=== PATIENT | male | born 1940 | race Caucasian/White ===

== ENCOUNTER → 2017-07-16 | Outpatient (CLI) | payer MEDICARE, OTHER ==
[~2017-07-16] MED LIST: ASPIRIN EC81 MG PO; CALCIUM PO; CELEBREX200 MG PO; D3 PO; EYLEA2 MG/0.05 IM; INHALERS PO; IRBESARTAN150 MG PO; LEVOTHYROXINE137 MCG PO; MULT VIT PO; NEXIUM40 MG PO; SAW PALMETTO160 MG PO; SKELAXIN800 MG PO; [UNRECOGNIZED DRUG - OTHER] PO; spiriva inhaler; symbicort inhaler
--- NOTE | 2017-07-16 11:16 | Diagnostic Imaging Report ---
Right knee MRI without contrast. History: Knee pain. Meniscus tear. Decreased range of motion. Pain not responding to conservative management Comparison: None. Technique: Multiplanar multi-sequence MRI of the knee without contrast. Findings: Medial compartment: There is a complex displaced tear involving the posterior horn and body segments of the medial meniscus. Meniscal tissue is displaced to the periphery. There is advanced full-thickness articular cartilage loss in the medial compartment with underlying bone marrow edema. The medial collateral ligament complex is intact. Lateral compartment: No meniscal tear or cartilage abnormality. The LCL complex is normal. Intercondylar notch: The ACL and PCL are intact. Patellofemoral compartment: There are regions of full-thickness articular cartilage loss in the patellofemoral compartment with underlying bone marrow edema. Extensor mechanism: The quadriceps and patellar tendons are normal. Other findings: There is a joint effusion and synovitis. There is no acute fracture, subluxation or avascular necrosis. 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 Regions of full-thickness articular cardia is loss in the patellofemoral compartment with underlying bone marrow edema. Joint effusion and synovitis. Signed by: Dr. Kobe Sauer M.D. on 07/16/2017 11:13 AM
== END ==
LOC: MRI 08:29
PROVIDERS: ATTEND Specialist
DX: S83.241A Other tear of medial meniscus, current injury, right knee, initial encounter (principal)

== ENCOUNTER → 2018-01-31 | Outpatient (CLI) | payer MEDICARE, OTHER ==
[~2018-01-31] MED LIST changes: +IOPAMIDOL 370 MG/ML 200 ML INFUS..BTL INJ ONE; +SODIUM CHLORIDE 0.9% 100 ML 100 ML ONE; +SODIUM CHLORIDE 0.9% 250ML 500 ML ONE
[2018-01-31 19:23] LABS: CREATININE, SERUM 1.43 mg/dL (0.72-1.25)
--- NOTE | 2018-01-31 19:53 | Diagnostic Imaging Report ---
EXAM: CT Chest WITH contrast 01/31/2018 5:30 PM INDICATION: \S\SOB; R/O PE COMPARISON: None TECHNIQUE: Chest was scanned utilizing a multidetector helical scanner from the lung apex through the level of the adrenal glands without administration of IV contrast. Coronal and sagittal reformations were obtained. PE protocol was performed. IV CONTRAST: 100 mL of Isovue-370 COMPLICATIONS: None RADIATION DOSE: Total DLP: 573.3 mGy*cm Estimated effective dose: (DLP x 0.014 x size factor) mSv CTDIvol has been reviewed. It is below the limits set by the Radiation Protocol Committee (RPC). FINDINGS: LINES/ TUBES: None. LUNGS AND AIRWAYS: No filling defect is identified within the pulmonary arteries to the segmental level. Left upper lobe resection. Diffuse centrilobular emphysematous changes, severe in the right upper lobe. Few scattered calcified granulomas. No masses or consolidations. Small amount of debris in the right mainstem bronchus. PLEURA: The pleural spaces are clear. HEART AND MEDIASTINUM: The thyroid gland is normal. No mediastinal, hilar or axillary lymphadenopathy. The heart is normal in size.. There is no pericardial effusion. There are mild atherosclerotic calcifications in the aorta. Coronary artery calcifications. 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 Main pulmonary artery measures 2.5 cm, within normal limits. UPPER ABDOMEN: Unremarkable. BONES: There are degenerative changes in the thoracic spine. Osseous demineralization. Right shoulder prosthesis. SOFT TISSUES: Unremarkable. IMPRESSION: No pulmonary emboli to the segmental level or acute abnormalities. Diffuse emphysema. Left upper lobe resection. Ascending aortic ectasia. Signed by: DR. Ac Lao MD on 01/31/2018 7:50 PM
== END ==
LOC: CT 17:08
PROVIDERS: ATTEND Family Medicine
DX: R07.9 Chest pain, unspecified (principal); R06.02 Shortness of breath; Z98.890 Other specified postprocedural states
CPT/HCPCS: 36415; 71260; 82565; 84520; J7050; Q9967

== ENCOUNTER → 2019-05-25 | Outpatient (CLI) | payer MEDICARE, OTHER ==
[~2019-05-25] MED LIST changes: -IOPAMIDOL 370 MG/ML 200 ML INFUS..BTL INJ ONE; -SODIUM CHLORIDE 0.9% 100 ML 100 ML ONE; -SODIUM CHLORIDE 0.9% 250ML 500 ML ONE
--- NOTE | 2019-05-25 17:16 | Diagnostic Imaging Report ---
CT of the chest, without contrast, 05/25/2019. History: Shortness of breath, history of lung cancer. Comparison: 01/31/2018. Technique: Multidetector CT scanning of the chest was performed from the level of the apices to the upper abdomen without contrast. Coronal and sagittal multiplanar reformations were obtained. RADIATION DOSE: Total DLP: 5:15 mGy*cm Dose modulation, iterative reconstruction, and/or weight based adjustment of the mA/kV was utilized to reduce the radiation dose to as low as reasonably achievable. Discussion: Evaluation is limited without IV contrast. Chest: The heart and pulmonary vessels are normal in size. Ascending aorta remains ectatic measuring 4.4 cm. There is calcification of the coronary arteries. Calcified left hilar node is present. There is no mediastinal adenopathy. Status post left upper lobectomy. There is severe right upper lobe emphysema. Diffuse bilateral peripheral scarring is present. A calcified granuloma is present in the left upper lobe. There is no evidence of consolidation or pleural effusion. Limited evaluation of the upper abdomen shows normal adrenal glands. Bones and soft tissues: No acute abnormality. Degenerative changes are present in the thoracic spine. 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 No acute or suspicious pulmonary findings. Signed by: Perez Archuleta on 05/25/2019 5:12 PM
== END ==
LOC: CT 13:06
PROVIDERS: ATTEND Internal Medicine Critical Care Medicine
DX: J98.4 Other disorders of lung (principal)
CPT/HCPCS: 71250

== ENCOUNTER → 2019-08-21 | Outpatient (CLI) | payer MEDICARE, OTHER ==
[~2019-08-21] MED LIST changes: +DIPHENHYDRAMINE HCL 25 MG CAP ONE; +IOPAMIDOL 370 MG/ML 200 ML INFUS..BTL INJ ONE; +SODIUM CHLORIDE 0.9% 100 ML ONE; +SODIUM CHLORIDE 0.9% 250ML 250 ML ONE; +SODIUM CHLORIDE 0.9% 500ML 500 ML ONE
[2019-08-21 12:32] LABS: BASOPHILS % 0.2 % (0.0-1.0); EOSINOPHILS # (AUTO) 0.1 (0.0-0.4); EOSINOPHILS % 1.1 % (0.0-6.0); HEMATOCRIT 39.3 % (38.2-49.6); HEMOGLOBIN 12.9 g/dL (14.0-18.0); LYMPHOCYTES # (AUTO) 0.9 (1.0-3.2); LYMPHOCYTES % 9.8 % (18.0-39.1); MEAN CORPUSCULAR HEMOGLOBIN 28.5 pg (28-32); MEAN CORPUSCULAR HGB CONC 32.8 g/dL (31-35); MEAN CORPUSCULAR VOLUME 86.9 fL (81-99); MONOCYTES # (AUTO) 0.4 (0.2-0.8); MONOCYTES % 4.7 % (4.4-11.3); NEUTROPHILS # (AUTO) 7.4 (2.1-6.9); NEUTROPHILS % 83.5 % (38.7-80.0); PLATELET COUNT 177 x10e3/uL (140-360); RED BLOOD COUNT 4.52 x10e6/uL (4.3-5.7); RED CELL DISTRIBUTION WIDTH 14.6 % (11.7-14.4)
[2019-08-21 12:51] LABS: ALBUMIN 3.4 g/dL (3.5-5.0); ALBUMIN/GLOBULIN RATIO 1.1 (0.8-2.0); ANION GAP 17.2 mmol/L (8-16); CALCIUM 8.7 mg/dL (8.4-10.2); CHOL/HDL RATIO 4.1 (3.9-4.7); CREATININE, SERUM 1.54 mg/dL (0.72-1.25); POTASSIUM 4.2 mmol/L (3.5-5.1)
[2019-08-21 13:13] LABS: THYROID STIMULATING HORMONE 1.182 uIU/mL (0.350-4.940)
--- NOTE | 2019-08-21 16:16 | Diagnostic Imaging Report ---
CT of the chest, abdomen, and pelvis, with contrast. History: Aortic ectasia. Comparison: CT chest 05/25/2019, 01/31/2018. Technique: Multidetector CT scanning of the abdomen and pelvis was performed from the level of the lung bases to the inferior pubic ramus, after intravenous administration of contrast. No oral contrast was given. Sagittal and coronal multiplanar as well as 3-D volume rendering reformations were obtained. Findings: Aorta and proximal branches: Stable 4.4 cm ectasia of the ascending thoracic aorta is present without evidence of dissection. There is no evidence of intramural or periaortic hematoma. There is preservation of the sinotubular junction. The innominate, proximal subclavian, and common carotid arteries are normal in branching order and size. The descending thoracic aorta is tortuous and ectatic but not aneurysmal. The abdominal aorta is calcified with an eccentric 3.7 cm aneurysm arising along the left aspect of the infrarenal abdominal aorta, beginning just below the left renal artery and extending only 4 cm in length. The celiac trunk, SMA, and KATHI are patent. Single renal arteries are present bilaterally both of which are patent. The iliac vessels and proximal femoral arteries are normal. Measurements of the aorta are as follows: 3 cm at the level of the aortic root, 4.4 cm in the mid ascending aorta, 4 cm in the distal ascending aorta, 3.2 cm in the mid aortic arch, 3.2 cm in the proximal descending aorta, 2.9 cm in the mid descending aorta, 2.7 cm at the level of the diaphragmatic hiatus, 2.6 cm at the level of the celiac trunk, 2.5 cm at the level of the SMA, 2.1 cm at level of the renal arteries, and 1.6 cm just above the level of the bifurcation. Chest: The atria, ventricles, and pulmonary vessels are normal in appearance. There is no evidence of axillary or mediastinal adenopathy. There is moderate bilateral predominantly upper lung zone emphysema. A calcified granuloma is noted in the left upper lobe lung. Post surgical changes of left upper lobectomy are noted. There is no evidence of consolidation, mass, or pleural effusion. Abdomen: Small stones are noted within the gallbladder. The liver, biliary tree, spleen, pancreas, adrenal glands, and kidneys are normal. Evaluation bowel is limited without oral contrast. There is no bowel dilatation. Scattered colonic diverticuli are present without evidence of adjacent inflammation. There is no evidence of adenopathy or free fluid. Pelvis: The bladder is unremarkable. The prostate is enlarged measuring 6.3 cm in transverse diameter. There is no evidence of free fluid or adenopathy. Small fat-containing left inguinal hernia is present. Bones: Degenerative changes are present throughout the thoracic and lumbar spine without evidence of lytic or sclerotic lesion. IMPRESSION: 1. Stable ectasia of the ascending thoracic aorta 2. 3.7 cm infrarenal abdominal aortic aneurysm. Recommend follow-up every 2 years. 3. Cholelithiasis. 4. Colonic diverticulosis without evidence of diverticulitis. 5. Prostatomegaly. Signed by: Perez Archuleta on 08/21/2019 4:14 PM
== END ==
LOC: CT 11:27
PROVIDERS: ATTEND Internal Medicine Cardiovascular Disease
DX: I71.2 Thoracic aortic aneurysm, without rupture (principal); I71.4 Abdominal aortic aneurysm, without rupture; I70.213 Atherosclerosis of native arteries of extremities with intermittent claudication, bilateral legs
CPT/HCPCS: 36415; 71275; 74174; 80053; 80061; 84443; 85025; J7040; J7050 ×2; Q9967

== ENCOUNTER → 2020-02-24 | Outpatient (CLI) | payer MEDICARE, OTHER ==
[~2020-02-24] MED LIST changes: -DIPHENHYDRAMINE HCL 25 MG CAP ONE; -IOPAMIDOL 370 MG/ML 200 ML INFUS..BTL INJ ONE; -SODIUM CHLORIDE 0.9% 100 ML ONE; -SODIUM CHLORIDE 0.9% 250ML 250 ML ONE; -SODIUM CHLORIDE 0.9% 500ML 500 ML ONE
--- NOTE | 2020-02-24 15:02 | Diagnostic Imaging Report ---
EXAM: CT Chest WITHOUT intravenous contrast 02/24/2020 2:30 PM INDICATION: Pulmonary nodules COMPARISON: Chest CTA of 08/21/2019, chest CT of 05/25/2019 and 01/31/2018 TECHNIQUE: Chest was scanned utilizing a multidetector helical scanner from the lung apex through the level of the adrenal glands without administration of IV contrast. Coronal and sagittal reformations were obtained. Routine protocol was performed. IV CONTRAST: None RADIATION DOSE: Total DLP: 568 mGy*cm. Dose modulation, iterative reconstruction, and/or weight based adjustment of the mA/kV was utilized to reduce the radiation dose to as low as reasonably achievable. COMPLICATIONS: None FINDINGS: LINES/ TUBES: None. LUNGS AND AIRWAYS: The central airways are patent. Status post left upper lobectomy. Severe upper lobe predominant centrilobular emphysema. Scattered small calcified and noncalcified pulmonary nodules appear unchanged. Medial right upper lobe 5 mm pulmonary nodule appears unchanged. No new suspicious pulmonary nodules. PLEURA: The pleural spaces are clear. HEART AND MEDIASTINUM: Thyroid gland not well visualized, likely atrophic. No supraclavicular, axillary, mediastinal, or hilar lymphadenopathy. The heart is not enlarged. No pericardial effusion. Atherosclerotic calcifications involve the aorta, coronary arteries, and proximal great vessels. Ectatic ascending aorta measures up to 4.2 cm. UPPER ABDOMEN: No acute findings in the upper abdomen. BONES: No acute osseous injury. No suspicious lytic or blastic lesions. Right shoulder arthroplasty. SOFT TISSUES: Unremarkable. IMPRESSION: Unchanged pulmonary nodules. No new suspicious pulmonary nodules. Unchanged background of severe upper lobe predominant centrilobular emphysema. Signed by: Mac Eddy MD on 02/24/2020 2:59 PM
== END ==
LOC: CT 14:08
PROVIDERS: ATTEND Internal Medicine Critical Care Medicine
DX: J98.4 Other disorders of lung (principal); R60.9 Edema, unspecified
CPT/HCPCS: 71250

== ENCOUNTER → 2020-02-29 | Outpatient (CLI) | payer MEDICARE, OTHER ==
--- NOTE | 2020-02-29 16:51 | Diagnostic Imaging Report ---
Ultrasound right axilla History: Pain, soft tissue mass Comparison: None Technique: Multiple grayscale and color flow images of the right axillary line the region of interest were performed using a linear high-resolution transducer. Findings: There is no abnormal mass or cyst. Impression: No abnormal mass or cyst seen. Signed by: Chaka Wilhelm MD on 02/29/2020 4:48 PM
== END ==
LOC: US 15:20
PROVIDERS: ATTEND Family Medicine
DX: R22.31 Localized swelling, mass and lump, right upper limb (principal)
CPT/HCPCS: 76882

== ENCOUNTER → 2020-06-24 | Outpatient (CLI) | payer MEDICARE, OTHER ==
[2020-06-24 08:45] LABS: BASOPHILS % 0.6 % (0.0-1.0); EOSINOPHILS # (AUTO) 0.3 (0.0-0.4); EOSINOPHILS % 5.1 % (0.0-6.0); HEMATOCRIT 39.5 % (38.2-49.6); HEMOGLOBIN 13.2 g/dL (14.0-18.0); LYMPHOCYTES # (AUTO) 1.2 (1.0-3.2); LYMPHOCYTES % 22.9 % (18.0-39.1); MEAN CORPUSCULAR HEMOGLOBIN 28.3 pg (28-32); MEAN CORPUSCULAR HGB CONC 33.4 g/dL (31-35); MEAN CORPUSCULAR VOLUME 84.6 fL (81-99); MONOCYTES # (AUTO) 0.4 (0.2-0.8); MONOCYTES % 8.4 % (4.4-11.3); NEUTROPHILS # (AUTO) 3.2 (2.1-6.9); NEUTROPHILS % 62.6 % (38.7-80.0); PLATELET COUNT 197 x10e3/uL (140-360); RED BLOOD COUNT 4.67 x10e6/uL (4.3-5.7); RED CELL DISTRIBUTION WIDTH 14.5 % (11.7-14.4)
[2020-06-24 09:01] LABS: ALBUMIN 3.6 g/dL (3.5-5.0); ALBUMIN/GLOBULIN RATIO 1.1 (0.8-2.0); ANION GAP 10.5 mmol/L (8-16); CALCIUM 8.7 mg/dL (8.4-10.2); CREATININE, SERUM 1.45 mg/dL (0.72-1.25); POTASSIUM 4.5 mmol/L (3.5-5.1)
== END ==
LOC: RAD 08:02
PROVIDERS: ATTEND Internal Medicine Critical Care Medicine
DX: J44.1 Chronic obstructive pulmonary disease with (acute) exacerbation (principal); N18.30 Chronic kidney disease, stage 3 unspecified
CPT/HCPCS: 36415; 71046; 80053; 85025

== ENCOUNTER → 2020-09-07 | Outpatient (CLI) | payer MEDICARE ==
[~2020-09-07] MED LIST changes: +ASPIR 8181 MG PO; +CELEBREX100 MG PO; +DULCOLAX5 MG PO; +FAMOTIDINE20 MG PO; +GABAPENTIN100 MG PO; +IOPAMIDOL 370 MG/ML 200 ML INFUS..BTL INJ ONE; +LEVOTHYROXINE112 MCG PO; +LOSARTAN POTASS25 MG PO; +MULTIVITAMINS1 EAC7 PO; +NAPROXEN250 MG PO; +NORCO 7.5-3251 EACH PO; +OMEPRAZOLE40 MG PO; +PEPCID20 MG PO; +PRESERVISION T1 EACH PO; +PROAIR HFA INH8.5 GM PO; +SODIUM CHLORIDE 0.9% 500ML 500 ML ONE; +SODIUM CHLORIDE 0.9% 50ML 50 ML ONE; +SPIRIVA18 MCG INH; +SYMBICORT 80-10.2 GM INH; +TYLENOL # 31 EA PO; +ULTRAM 50MG50 MG PO; +XARELTO10 MG PO
[2020-09-07 13:12] LABS: CREATININE, SERUM 1.43 mg/dL (0.72-1.25)
== END ==
LOC: CT 11:59
PROVIDERS: ATTEND Internal Medicine Cardiovascular Disease
DX: I71.2 Thoracic aortic aneurysm, without rupture (principal); I71.4 Abdominal aortic aneurysm, without rupture
CPT/HCPCS: 36415; 71275; 74174; 82565; 84520; 96360; J7040; Q9967

== ENCOUNTER → 2021-01-05 | Outpatient (CLI) | payer MEDICARE ==
[~2021-01-05] MED LIST changes: -IOPAMIDOL 370 MG/ML 200 ML INFUS..BTL INJ ONE; -SODIUM CHLORIDE 0.9% 500ML 500 ML ONE; -SODIUM CHLORIDE 0.9% 50ML 50 ML ONE
== END ==
LOC: CT 16:35
PROVIDERS: ATTEND Internal Medicine Critical Care Medicine
DX: R91.1 Solitary pulmonary nodule (principal)
CPT/HCPCS: 71250

== ENCOUNTER 2021-02-21 18:31 | Emergency (ER) | payer MEDICARE ==
[~2021-02-21] VITALS: Ht 177.8 cm; Wt 99.8 kg
[2021-02-21 19:12] LABS: BASOPHILS % 0.6 % (0.0-1.0); EOSINOPHILS # (AUTO) 0.2 (0.0-0.4); EOSINOPHILS % 4.3 % (0.0-6.0); HEMATOCRIT 40.5 % (38.2-49.6); HEMOGLOBIN 13.5 g/dL (14.0-18.0); LYMPHOCYTES # (AUTO) 1.2 (1.0-3.2); LYMPHOCYTES % 22.7 % (18.0-39.1); MEAN CORPUSCULAR HEMOGLOBIN 28.2 pg (28-32); MEAN CORPUSCULAR HGB CONC 33.3 g/dL (31-35); MEAN CORPUSCULAR VOLUME 84.6 fL (81-99); MONOCYTES # (AUTO) 0.5 (0.2-0.8); MONOCYTES % 10.3 % (4.4-11.3); NEUTROPHILS # (AUTO) 3.1 (2.1-6.9); NEUTROPHILS % 61.7 % (38.7-80.0); PLATELET COUNT 221 x10e3/uL (140-360); RED BLOOD COUNT 4.79 x10e6/uL (4.3-5.7); RED CELL DISTRIBUTION WIDTH 14.6 % (11.7-14.4)
[2021-02-21 19:28] LABS: ALBUMIN 3.9 g/dL (3.5-5.0); ALBUMIN/GLOBULIN RATIO 1.1 (0.8-2.0); ANION GAP 17.9 mmol/L (8-16); CALCIUM 8.8 mg/dL (8.4-10.2); CREATININE, SERUM 1.34 mg/dL (0.72-1.25); POTASSIUM 3.9 mmol/L (3.5-5.1)
== END 2021-02-22 00:15 | disposition home or self-care (01) ==
LOC: ER 18:50
DX: R50.9 Fever, unspecified (principal); R05 Cough; R07.89 Other chest pain; I10 Essential (primary) hypertension; E03.9 Hypothyroidism, unspecified; Z20.822 Contact with and (suspected) exposure to COVID-19
CPT/HCPCS: 36415; 71045; 80053; 83880; 84484; 85025; 93005; 99284; U0002

== ENCOUNTER 2021-05-30 14:05 | Inpatient (IN) | payer MEDICARE ==
[~2021-05-30] VITALS: Ht 177.8 cm; Wt 99.8 kg
[2021-05-30] MEDS ORDERED: ASPIRIN 81 MG CHEW TAB PO ONE (14:45)
[2021-05-30 15:00] LABS: BASOPHILS % 0.5 % (0.0-1.0); EOSINOPHILS # (AUTO) 0.2 (0.0-0.4); EOSINOPHILS % 4.4 % (0.0-6.0); HEMATOCRIT 35.4 % (38.2-49.6); HEMOGLOBIN 11.7 g/dL (14.0-18.0); LYMPHOCYTES # (AUTO) 0.9 (1.0-3.2); LYMPHOCYTES % 17.1 % (18.0-39.1); MEAN CORPUSCULAR HEMOGLOBIN 28.5 pg (28-32); MEAN CORPUSCULAR HGB CONC 33.1 g/dL (31-35); MEAN CORPUSCULAR VOLUME 86.3 fL (81-99); MONOCYTES # (AUTO) 0.7 (0.2-0.8); MONOCYTES % 13.5 % (4.4-11.3); NEUTROPHILS # (AUTO) 3.5 (2.1-6.9); NEUTROPHILS % 64.3 % (38.7-80.0); PLATELET COUNT 204 x10e3/uL (140-360); RED CELL DISTRIBUTION WIDTH 14.5 % (11.7-14.4)
[2021-05-30 15:13] LABS: INR 0.89; PROTHROMBIN TIME 12.8 seconds (11.9-14.5)
[2021-05-30 15:14] LABS: PARTIAL THROMBOPLASTIN TIME 27.1 seconds (23.8-35.5)
[2021-05-30 15:24] LABS: ALBUMIN 3.4 g/dL (3.5-5.0); ALBUMIN/GLOBULIN RATIO 1.2 (0.8-2.0); ANION GAP 12.3 mmol/L (8-16); CALCIUM 8.6 mg/dL (8.4-10.2); CREATININE, SERUM 1.55 mg/dL (0.72-1.25); POTASSIUM 4.3 mmol/L (3.5-5.1)
[2021-05-30 15:30] LABS: CREATINE KINASE MB 4.1 ng/mL (0-5.0)
[2021-05-30] MEDS ORDERED: SODIUM CHLORIDE 0.9% 500ML 500 ML IV ONE (16:00)
[2021-05-30] MEDS ORDERED: DEXAMETHASONE SOD PHOS 10 MG/1 ML VIAL IV ONE (16:00)
[2021-05-30 16:02] LABS: CLARITY,URINE CLEAR (CLEAR); COLOR,URINE YELLOW (YELLOW)
[2021-05-30 16:03] LABS: KETONES,URINE NEGATIVE (NEGATIVE); LEUKOCYTE ESTERASE ,URINE NEGATIVE (NEGATIVE); NITRITE,URINE NEGATIVE (NEGATIVE); PROTEIN,URINE DIPSTICK >=300 (NEGATIVE); URINE UROBILINOGEN 0.2 mg/dL (0.2 - 1)
[2021-05-30 16:06] LABS: BACTERIA,URINE RARE /HPF; EPITHELIAL CELLS,URINE FEW /LPF; RBC,URINE 0-5 /HPF (0-5); WBC,URINE (MAN) 0-5 /HPF (0-5)
[2021-05-30] MEDS ORDERED: ALBUTEROL/IPRATROPIUM 3 ML NEB NEB PRN (16:30)
[2021-05-30] MEDS ORDERED: NITROGLYCERIN 0.4 MG SUBL SL PRN (16:30)
[2021-05-30] MEDS ORDERED: ONDANSETRON HCL INJ 2MG/ML 2ML 2 MG/ML VIAL IV PRN ×2 (16:30→18:15)
[2021-05-30] MEDS ORDERED: PREDNISONE 20 MG TAB PO ONE ×2 (18:15→19:15)
[2021-05-30] MEDS ORDERED: PROAIR HFA INH8.5 GM INH (18:32)
[2021-05-30] MEDS ORDERED: VITAMIN B-121000 MCG PO (18:32)
[2021-05-30] MEDS ORDERED: SYMBICORT 80-10.2 GM INH (18:32)
[2021-05-30] MEDS ORDERED: AMLODIPINE BESYL5 MG PO (18:32)
[2021-05-30] MEDS ORDERED: SKELAXIN800 MG PO (18:32)
[2021-05-30] MEDS ORDERED: MULTI-VITAMIN1 EACH PO (18:32)
[2021-05-30] MEDS ORDERED: SPIRIVA18 MCG INH (18:32)
[2021-05-30] MEDS ORDERED: VITAMIN E400 UNI1 PO (18:32)
[2021-05-30] MEDS ORDERED: ACETAMINOP325 MG/10 PO (18:33)
[2021-05-30 18:38] VITALS: BP 194/94
[2021-05-30] MEDS ORDERED: CLOPIDOGREL BISULFATE 75 MG TAB PO ONE (18:40)
[2021-05-30] MEDS: SODIUM CHLORIDE 0.9% 1000ML 1,000 ML IV SCH (18:50)
[2021-05-30] MEDS: CLONIDINE HCL 0.1 MG TAB PO PRN (18:50)
[2021-05-30 20:00] VITALS: BP 174/84
[2021-05-30 20:42] VITALS: BP 174/84
[2021-05-31] VITALS (18 sets, daily range): BP systolic 141–175; BP diastolic 69–92
[2021-05-31] MEDS ORDERED: PREDNISONE 20 MG TAB PO ONE ×2 (00:45→06:45)
[2021-05-31] MEDS: SODIUM CHLORIDE 0.9% 1000ML 1,000 ML IV SCH ×3 (03:03→22:00)
[2021-05-31 05:29] LABS: HEMATOCRIT 38.2 % (38.2-49.6); HEMOGLOBIN 12.9 g/dL (14.0-18.0); LYMPHOCYTES # (AUTO) 0.5 (1.0-3.2); MEAN CORPUSCULAR HEMOGLOBIN 28.3 pg (28-32); MEAN CORPUSCULAR HGB CONC 33.8 g/dL (31-35); MEAN CORPUSCULAR VOLUME 83.8 fL (81-99); MONOCYTES # (AUTO) 0.1 (0.2-0.8); MONOCYTES % 1.5 % (4.4-11.3); NEUTROPHILS # (AUTO) 2.7 (2.1-6.9); NEUTROPHILS % 82.2 % (38.7-80.0); PLATELET COUNT 206 x10e3/uL (140-360); RED BLOOD COUNT 4.56 x10e6/uL (4.3-5.7)
[2021-05-31] MEDS: LEVOTHYROXINE SODIUM 125 MCG TAB PO SCH (05:37)
[2021-05-31] MEDS: CLONIDINE HCL 0.1 MG TAB PO PRN (05:41)
[2021-05-31 06:06] LABS: ALBUMIN 3.4 g/dL (3.5-5.0); ANION GAP 15.7 mmol/L (8-16); CALCIUM 9.2 mg/dL (8.4-10.2); CREATININE, SERUM 1.27 mg/dL (0.72-1.25); POTASSIUM 4.7 mmol/L (3.5-5.1)
[2021-05-31 06:29] LABS: CREATINE KINASE MB 2.6 ng/mL (0-5.0)
[2021-05-31 06:36] LABS: CHOL/HDL RATIO 4.1 (3.9-4.7)
[2021-05-31] MEDS ORDERED: DIPHENHYDRAMINE HCL 25 MG CAP PO ONE (06:45)
[2021-05-31] MEDS ORDERED: SODIUM CHLORIDE 0.9% 100 ML ONE (07:35)
[2021-05-31] MEDS ORDERED: IOPAMIDOL 370 MG/ML 200 ML INFUS..BTL INJ ONE ×2 (07:35→10:25)
[2021-05-31 07:41] LABS: LYMPHOCYTES % (MANUAL) 14 % (19-48); MONOCYTES % (MANUAL) 6 % (3.4-9.0); NEUTROPHILS % (MANUAL) 79 % (40-74); PLATELET ESTIMATE ADEQUATE; PLATELET MORPHOLOGY COMMENT NORMAL; RBC MORPHOLOGY COMMENT NORMAL
[2021-05-31] MEDS: ASPIRIN 81 MG ENTERIC COATED PO SCH ×2 (08:57→16:44)
[2021-05-31] MEDS ORDERED: LIDOCAINE HCL 2% LOCAL 20 ML VIAL ONE (10:24)
[2021-05-31] MEDS ORDERED: MIDAZOLAM HCL 2 MG/2 ML VIAL ONE (10:24)
[2021-05-31] MEDS ORDERED: FENTANYL CITRATE/PF 100MCG/2 ML INJ ONE (10:24)
[2021-05-31] MEDS ORDERED: HEPARIN SOD/SOD CHLORIDE 2,000 ML ONE (10:25)
[2021-05-31] MEDS ORDERED: SODIUM CHLORIDE 0.9% 1000ML 1,000 ML ONE (10:25)
[2021-05-31] MEDS ORDERED: HYDRALAZINE HCL 20 MG/ML VIAL ONE (11:13)
[2021-05-31 13:55] LABS: CREATINE KINASE MB 3.3 ng/mL (0-5.0)
[2021-05-31] MEDS: Morphine 2mg Syringe 2 MG/ML SYR IV PRN ×2 (15:40→19:49)
[2021-06-01] VITALS: BP 155/77
[2021-06-01 04:00] VITALS: BP 152/68
[2021-06-01 05:47] LABS: EOSINOPHILS % 0.2 % (0.0-6.0); HEMATOCRIT 34.5 % (38.2-49.6); HEMOGLOBIN 11.2 g/dL (14.0-18.0); LYMPHOCYTES # (AUTO) 0.8 (1.0-3.2); LYMPHOCYTES % 13.2 % (18.0-39.1); MEAN CORPUSCULAR HEMOGLOBIN 28.1 pg (28-32); MEAN CORPUSCULAR HGB CONC 32.5 g/dL (31-35); MEAN CORPUSCULAR VOLUME 86.7 fL (81-99); MONOCYTES # (AUTO) 0.5 (0.2-0.8); MONOCYTES % 8.6 % (4.4-11.3); NEUTROPHILS # (AUTO) 4.7 (2.1-6.9); NEUTROPHILS % 77.7 % (38.7-80.0); PLATELET COUNT 170 x10e3/uL (140-360); RED BLOOD COUNT 3.98 x10e6/uL (4.3-5.7); RED CELL DISTRIBUTION WIDTH 14.6 % (11.7-14.4)
[2021-06-01] MEDS: LEVOTHYROXINE SODIUM 125 MCG TAB PO SCH (05:56)
[2021-06-01 06:12] LABS: ALBUMIN 3.1 g/dL (3.5-5.0); ALBUMIN/GLOBULIN RATIO 1.2 (0.8-2.0); ANION GAP 11.1 mmol/L (8-16); CALCIUM 8.1 mg/dL (8.4-10.2); CREATININE, SERUM 1.21 mg/dL (0.72-1.25); POTASSIUM 4.1 mmol/L (3.5-5.1)
[2021-06-01 08:08] VITALS: BP 177/83
[2021-06-01] MEDS: ASPIRIN 81 MG ENTERIC COATED PO SCH (08:20)
[2021-06-01] MEDS: CLONIDINE HCL 0.1 MG TAB PO PRN (08:22)
[2021-06-01 08:28] VITALS: BP 177/83
[2021-06-01 09:00] VITALS: BP 177/83
[2021-06-01] MEDS ORDERED: DIGOXIN 0.125 MG TAB PO SCH (09:00)
[2021-06-01] MEDS ORDERED: ONDANSETRON HCL 4 MG ORAL DISINTEGRATING TAB PO PRN (11:00)
== END 2021-06-01 11:25 | disposition home or self-care (01) | DRG 287 ==
LOC: ER 14:39 → ERHOLD 16:28 → MED/SURG 18:13
PROC: 4A023N7 Measurement of Cardiac Sampling and Pressure, Left Heart, Percutaneous Approach (ICD-10-PCS; principal; 2021-05-31)
PROC: B2111ZZ Fluoroscopy of Multiple Coronary Arteries using Low Osmolar Contrast (ICD-10-PCS; 2021-05-31)
DX: I24.9 Acute ischemic heart disease, unspecified (principal); J44.1 Chronic obstructive pulmonary disease with (acute) exacerbation; I25.119 Atherosclerotic heart disease of native coronary artery with unspecified angina pectoris; I25.84 Coronary atherosclerosis due to calcified coronary lesion; I71.4 Abdominal aortic aneurysm, without rupture; I73.9 Peripheral vascular disease, unspecified; M19.90 Unspecified osteoarthritis, unspecified site; J44.9 Chronic obstructive pulmonary disease, unspecified; Z95.1 Presence of aortocoronary bypass graft; E03.9 Hypothyroidism, unspecified; Z86.711 Personal history of pulmonary embolism; Z88.0 Allergy status to penicillin; F17.220 Nicotine dependence, chewing tobacco, uncomplicated; I83.12 Varicose veins of left lower extremity with inflammation; I83.11 Varicose veins of right lower extremity with inflammation; Z90.49 Acquired absence of other specified parts of digestive tract; M47.9 Spondylosis, unspecified; M17.0 Bilateral primary osteoarthritis of knee; Z20.822 Contact with and (suspected) exposure to COVID-19
CPT/HCPCS: 36415; 71045; 71250; 71260; 74174; 80053; 80061; 81001; 82550; 82553; 83880; 84443; 84484; 85025; 85610; 85730; 93005; 93306; 93454; 94799; 96361; 99152; 99153; 99284; C1769; C1887; J0360; J1100; J2001; J2250; J2270; J3010; J7030; J7040; J7050; J7512; Q9967; U0002

== ENCOUNTER 2021-06-11 22:32 | Emergency (ER) | payer MEDICARE ==
[~2021-06-11] VITALS: Ht 330.2 cm; Wt 99.8 kg
[~2021-06-11 22:32] MED LIST changes: +ACETAMINOP325 MG/10 PO; +AMLODIPINE BESYL5 MG PO; +MULTI-VITAMIN1 EACH PO; +PROAIR HFA INH8.5 GM INH; +VITAMIN B-121000 MCG PO; +VITAMIN E400 UNI1 PO
[2021-06-11] MEDS ORDERED: ACETAMINOPHEN 325 MG TAB PO ONE (23:15)
[2021-06-11 23:16] LABS: BASOPHILS % 0.3 % (0.0-1.0); EOSINOPHILS # (AUTO) 0.1 (0.0-0.4); EOSINOPHILS % 1.2 % (0.0-6.0); HEMATOCRIT 37.2 % (38.2-49.6); HEMOGLOBIN 12.3 g/dL (14.0-18.0); LYMPHOCYTES # (AUTO) 0.5 (1.0-3.2); LYMPHOCYTES % 6.3 % (18.0-39.1); MEAN CORPUSCULAR HEMOGLOBIN 28.3 pg (28-32); MEAN CORPUSCULAR HGB CONC 33.1 g/dL (31-35); MEAN CORPUSCULAR VOLUME 85.7 fL (81-99); MONOCYTES # (AUTO) 0.6 (0.2-0.8); MONOCYTES % 7.3 % (4.4-11.3); NEUTROPHILS # (AUTO) 6.4 (2.1-6.9); NEUTROPHILS % 84.5 % (38.7-80.0); PLATELET COUNT 173 x10e3/uL (140-360); RED BLOOD COUNT 4.34 x10e6/uL (4.3-5.7); RED CELL DISTRIBUTION WIDTH 14.5 % (11.7-14.4)
[2021-06-11 23:19] LABS: INR 0.96; PROTHROMBIN TIME 13.6 seconds (11.9-14.5)
[2021-06-11 23:20] LABS: PARTIAL THROMBOPLASTIN TIME 32.6 seconds (23.8-35.5)
[2021-06-11 23:29] LABS: ALBUMIN 3.5 g/dL (3.5-5.0); ALBUMIN/GLOBULIN RATIO 1.1 (0.8-2.0); ANION GAP 15.6 mmol/L (8-16); CALCIUM 8.7 mg/dL (8.4-10.2); CREATININE, SERUM 1.68 mg/dL (0.72-1.25); POTASSIUM 4.6 mmol/L (3.5-5.1)
[2021-06-11] MEDS ORDERED: SODIUM CHLORIDE 0.9% 500ML 500 ML IV STA (23:32)
[2021-06-11 23:35] LABS: CREATINE KINASE MB 1.5 ng/mL (0-5.0)
[2021-06-11] MEDS ORDERED: SODIUM CHLORIDE 0.9% 1000ML 1,000 ML ONE (23:46)
[2021-06-12] MEDS ORDERED: LEVALBUTEROL HCL SOLN NEBU 0.63 MG/3 ML NEB INH ONE (01:30)
[2021-06-12 02:21] LABS: CLARITY,URINE SL CLOUDY (CLEAR); COLOR,URINE YELLOW (YELLOW); LEUKOCYTE ESTERASE ,URINE NEGATIVE (NEGATIVE); NITRITE,URINE NEGATIVE (NEGATIVE)
[2021-06-12 02:22] LABS: KETONES,URINE NEGATIVE (NEGATIVE); PROTEIN,URINE DIPSTICK >=300 (NEGATIVE); URINE UROBILINOGEN 0.2 mg/dL (0.2 - 1)
[2021-06-12 02:27] LABS: BACTERIA,URINE FEW /HPF; EPITHELIAL CELLS,URINE FEW /LPF
== END 2021-06-12 02:57 | disposition home or self-care (01) ==
LOC: ER 22:36
DX: R06.02 Shortness of breath (principal); J44.9 Chronic obstructive pulmonary disease, unspecified; I10 Essential (primary) hypertension; E03.9 Hypothyroidism, unspecified; Z95.1 Presence of aortocoronary bypass graft
CPT/HCPCS: 36415; 71045; 80053; 81001; 82550; 82553; 83880; 84484; 85025; 85610; 85730; 93005; 94640; 94799; 99284; J7030; U0002

== ENCOUNTER → 2021-10-17 | Outpatient (CLI) | payer MEDICARE | LOC: RAD 12:10 | PROVIDERS: ATTEND Internal Medicine Pulmonary Disease | DX: J44.9 Chronic obstructive pulmonary disease, unspecified (principal) | CPT/HCPCS: 71046 ==

== ENCOUNTER → 2022-05-09 | Outpatient (CLI) | payer MEDICARE | LOC: RAD 11:41 | PROVIDERS: ATTEND Internal Medicine Pulmonary Disease | DX: R06.02 Shortness of breath (principal) | CPT/HCPCS: 71046 ==

== ENCOUNTER → 2023-04-30 | Outpatient (REF) | payer MEDICARE | LOC: RAD 12:27 | PROVIDERS: ATTEND Internal Medicine Pulmonary Disease | DX: J44.9 Chronic obstructive pulmonary disease, unspecified (principal) | CPT/HCPCS: 71046 ==

== ENCOUNTER → 2023-11-12 | Outpatient (REF) | payer MEDICARE | LOC: RAD 10:25 | PROVIDERS: ATTEND Internal Medicine Pulmonary Disease | DX: J44.9 Chronic obstructive pulmonary disease, unspecified (principal) | CPT/HCPCS: 71046 ==

== ENCOUNTER 2024-05-29 09:30 | Inpatient (IN) | payer MEDICARE ==
[2024-05-29] VITALS (12 sets, daily range): BP systolic 160–168; BP diastolic 80–100; PULSE 88–110; RESP 18–20; TEMP 97.9–99.3; O2SAT 95–100
[~2024-05-29] VITALS: Ht 162.6 cm; Wt 99.8 kg
[2024-05-29 10:23] LABS: BASOPHILS % 0.6 % (0.0-1.0); EOSINOPHILS # (AUTO) 0.1 (0.0-0.4); EOSINOPHILS % 1.9 % (0.0-6.0); HEMATOCRIT 36.6 % (38.2-49.6); HEMOGLOBIN 11.8 g/dL (14.0-18.0); LYMPHOCYTES # (AUTO) 0.6 (1.0-3.2); LYMPHOCYTES % 11.4 % (18.0-39.1); MEAN CORPUSCULAR HEMOGLOBIN 28.5 pg (28-32); MEAN CORPUSCULAR HGB CONC 32.2 g/dL (31-35); MEAN CORPUSCULAR VOLUME 88.4 fL (81-99); MONOCYTES # (AUTO) 0.6 (0.2-0.8); MONOCYTES % 10.7 % (4.4-11.3); NEUTROPHILS # (AUTO) 3.9 (2.1-6.9); NEUTROPHILS % 75.2 % (38.7-80.0); PLATELET COUNT 198 x10e3/uL (140-360); RED BLOOD COUNT 4.14 x10e6/uL (4.3-5.7); RED CELL DISTRIBUTION WIDTH 14.3 % (11.7-14.4); WHITE BLOOD COUNT 5.16 x10e3/uL (4.8-10.8)
[2024-05-29 10:30] LABS: INR 1.05; PROTHROMBIN TIME 14.3 seconds (11.9-14.5)
[2024-05-29 10:31] LABS: PARTIAL THROMBOPLASTIN TIME 32.1 seconds (23.8-35.5)
[2024-05-29] MEDS: METHYLPREDNISOLONE SOD SUCC 125 MG/2ML VIAL IV STA (10:36)
[2024-05-29 10:37] LABS: ALBUMIN 3.5 g/dL (3.5-5.0); ANION GAP 17.2 mmol/L (8-16); BILIRUBIN,TOTAL 0.6 mg/dL (0.2-1.2); CALCIUM 8.9 mg/dL (8.4-10.2); CREATININE, SERUM 2.08 mg/dL (0.72-1.25); POTASSIUM 4.2 mmol/L (3.5-5.1); TOTAL PROTEIN 6.9 g/dL (6.5-8.1)
[2024-05-29] MEDS: SODIUM CHLORIDE 0.9% 500ML 500 ML IV ONE (10:37)
[2024-05-29] MEDS: ALBUTEROL/IPRATROPIUM 3 ML NEB NEB ONE (11:00)
[2024-05-29 11:44] LABS: CLARITY,URINE CLEAR (CLEAR); COLOR,URINE YELLOW (YELLOW); LEUKOCYTE ESTERASE ,URINE NEGATIVE (NEGATIVE); NITRITE,URINE NEGATIVE (NEGATIVE); PH,URINE 5.5 (5 - 7)
[2024-05-29 11:45] LABS: BILIRUBIN,URINE NEGATIVE (NEGATIVE); GLUCOSE, URINE NEGATIVE (NEGATIVE); KETONES,URINE 1+ (NEGATIVE); PROTEIN,URINE DIPSTICK >=300 (NEGATIVE); URINE UROBILINOGEN 0.2 mg/dL (0.2 - 1)
[2024-05-29 11:55] LABS: BACTERIA,URINE MODERATE /HPF; EPITHELIAL CELLS,URINE FEW /LPF; RBC,URINE 0-5 /HPF (0-5); WBC,URINE (MAN) 0-5 /HPF (0-5)
[2024-05-29 11:56] LABS: URIC ACID CRYSTALS,URINE FEW (FEW)
[2024-05-29 12:01] LABS: OTHER CRYSTALS,URINE PRESENT
[2024-05-29] MEDS ORDERED: ONDANSETRON HCL INJ 2MG/ML 2ML 2 MG/ML VIAL IV PRN (12:45)
[2024-05-29] MEDS: SODIUM CHLORIDE 0.9% 1000ML 1,000 ML IV SCH (13:09)
[2024-05-29] MEDS: ALBUTEROL/IPRATROPIUM 3 ML NEB NEB SCH (13:19)
[2024-05-29] MEDS ORDERED: CLOPIDOGREL75 MG PO (15:05)
[2024-05-29] MEDS ORDERED: ALLOPURINOL100 MG PO (15:05)
[2024-05-29] MEDS ORDERED: Morphine 2mg Syringe 2 MG/ML SYR IV PRN (16:00)
[2024-05-29] MEDS ORDERED: ACETAMINOPHEN 325 MG TAB PO PRN (16:00)
[2024-05-29] MEDS ORDERED: ALBUTEROL/IPRATROPIUM 3 ML NEB NEB PRN (16:15)
[2024-05-29] MEDS: LOSARTAN POTASSIUM 100 MG TAB PO SCH (16:15)
[2024-05-29] MEDS: CELECOXIB 100 MG CAP PO SCH (16:15)
[2024-05-29 16:18] LABS: TROPONIN I 0.028 ng/mL (0-0.300)
[2024-05-29] MEDS: HYDRALAZINE HCL 20 MG/ML VIAL IV PRN (16:20)
[2024-05-29] MEDS: HYDROCODONE/APAP 5MG-325MG TAB PO PRN (16:20)
[2024-05-29] MEDS: METHYLPREDNISOLONE SOD SUCC 125 MG/2ML VIAL IV SCH (17:30)
[2024-05-29] MEDS: GABAPENTIN 400 MG CAP PO SCH (21:46)
[2024-05-30] VITALS (9 sets, daily range): BP systolic 145–160; BP diastolic 79–93; PULSE 95–103; RESP 18–23; TEMP 97.7–98.1; O2SAT 95–100
[2024-05-30 06:48] LABS: BASOPHILS % 0.2 % (0.0-1.0); HEMATOCRIT 34.1 % (38.2-49.6); LYMPHOCYTES # (AUTO) 0.3 (1.0-3.2); LYMPHOCYTES % 6.7 % (18.0-39.1); MEAN CORPUSCULAR HEMOGLOBIN 28.6 pg (28-32); MEAN CORPUSCULAR HGB CONC 32.3 g/dL (31-35); MEAN CORPUSCULAR VOLUME 88.6 fL (81-99); MONOCYTES # (AUTO) 0.1 (0.2-0.8); NEUTROPHILS # (AUTO) 3.7 (2.1-6.9); NEUTROPHILS % 90.6 % (38.7-80.0); PLATELET COUNT 177 x10e3/uL (140-360); RED BLOOD COUNT 3.85 x10e6/uL (4.3-5.7); RED CELL DISTRIBUTION WIDTH 14.6 % (11.7-14.4); WHITE BLOOD COUNT 4.06 x10e3/uL (4.8-10.8)
[2024-05-30 07:13] LABS: ALBUMIN 3.1 g/dL (3.5-5.0); ALBUMIN/GLOBULIN RATIO 1.1 (0.8-2.0); BILIRUBIN,TOTAL 0.3 mg/dL (0.2-1.2); CALCIUM 8.5 mg/dL (8.4-10.2); CHOL/HDL RATIO 3.7 (3.9-4.7); CREATININE, SERUM 2.03 mg/dL (0.72-1.25)
[2024-05-30 07:52] LABS: TROPONIN I 1.893 ng/mL (0-0.300)
[2024-05-30] MEDS: PANTOPRAZOLE SODIUM 20 MG TABLET.DR PO SCH (08:41)
[2024-05-30] MEDS: ALLOPURINOL 100 MG TAB PO SCH (08:41)
[2024-05-30] MEDS: ASPIRIN 81 MG CHEW TAB PO SCH (08:44)
[2024-05-30] MEDS: LEVOTHYROXINE SODIUM 25 MCG TABLET PO SCH (08:44)
[2024-05-30] MEDS: CLOPIDOGREL BISULFATE 75 MG TAB PO SCH (08:44)
[2024-05-30 08:58] LABS: TROPONIN I 2.565 ng/mL (0-0.300)
[2024-05-30] MEDS: SODIUM CHLORIDE 0.9% 1000ML 1,000 ML IV SCH (10:00)
[2024-05-30] MEDS ORDERED: BISACODYL 10 MG SUPP PR PRN (10:15)
[2024-05-30] MEDS: METHYLPREDNISOLONE SOD SUCC 125 MG/2ML VIAL IV SCH (17:02)
[2024-05-30] MEDS: HEPARIN SOD (PORCINE) 5,000 UNIT/ML VIAL SC SCH (17:02)
[2024-05-31] VITALS (12 sets, daily range): BP systolic 138–168; BP diastolic 85–95; PULSE 75–102; RESP 18–23; TEMP 97.6–98.8; O2SAT 95–99
[2024-05-31] MEDS: LEVOTHYROXINE SODIUM 75 MCG TAB PO SCH (05:40)
[2024-05-31] MEDS: LEVOTHYROXINE SODIUM 25 MCG TABLET PO SCH (05:41)
[2024-05-31 06:03] LABS: HEMATOCRIT 32.9 % (38.2-49.6); HEMOGLOBIN 11.1 g/dL (14.0-18.0); LYMPHOCYTES # (AUTO) 0.3 (1.0-3.2); LYMPHOCYTES % 3.8 % (18.0-39.1); MEAN CORPUSCULAR HEMOGLOBIN 28.6 pg (28-32); MEAN CORPUSCULAR HGB CONC 33.7 g/dL (31-35); MEAN CORPUSCULAR VOLUME 84.8 fL (81-99); MONOCYTES # (AUTO) 0.1 (0.2-0.8); MONOCYTES % 1.8 % (4.4-11.3); NEUTROPHILS # (AUTO) 6.6 (2.1-6.9); PLATELET COUNT 196 x10e3/uL (140-360); RED BLOOD COUNT 3.88 x10e6/uL (4.3-5.7); RED CELL DISTRIBUTION WIDTH 14.9 % (11.7-14.4); WHITE BLOOD COUNT 7.04 x10e3/uL (4.8-10.8)
[2024-05-31 06:31] LABS: ALBUMIN 3.1 g/dL (3.5-5.0); ALBUMIN/GLOBULIN RATIO 1.1 (0.8-2.0); ANION GAP 13.9 mmol/L (8-16); BILIRUBIN,TOTAL 0.3 mg/dL (0.2-1.2); CALCIUM 8.4 mg/dL (8.4-10.2); CREATININE, SERUM 1.99 mg/dL (0.72-1.25); POTASSIUM 3.9 mmol/L (3.5-5.1); TOTAL PROTEIN 5.8 g/dL (6.5-8.1)
[2024-05-31 06:48] LABS: PHOSPHORUS 2.7 MG/DL (2.3-4.7)
[2024-05-31 07:08] LABS: THYROID STIMULATING HORMONE 3.241 uIU/mL (0.350-4.940)
[2024-05-31] MEDS: DOCUSATE SODIUM 100 MG CAP PO SCH ×2 (09:05→16:36)
[2024-05-31] MEDS: SENNOSIDES 8.6 MG TAB PO SCH (09:05)
[2024-05-31] MEDS: METHYLPREDNISOLONE SOD SUCC 125 MG/2ML VIAL IV SCH (16:36)
[2024-05-31] MEDS: HEPARIN SOD (PORCINE) 5,000 UNIT/ML VIAL SC SCH (21:10)
[2024-06-01] VITALS (14 sets, daily range): BP systolic 142–165; BP diastolic 78–92; PULSE 74–95; RESP 18–22; TEMP 97.6–98.8; O2SAT 95–100
[2024-06-01 05:46] LABS: HEMATOCRIT 32.3 % (38.2-49.6); HEMOGLOBIN 10.8 g/dL (14.0-18.0); LYMPHOCYTES # (AUTO) 0.6 (1.0-3.2); LYMPHOCYTES % 9.7 % (18.0-39.1); MEAN CORPUSCULAR HEMOGLOBIN 28.6 pg (28-32); MEAN CORPUSCULAR HGB CONC 33.4 g/dL (31-35); MEAN CORPUSCULAR VOLUME 85.4 fL (81-99); MONOCYTES # (AUTO) 0.4 (0.2-0.8); MONOCYTES % 6.6 % (4.4-11.3); NEUTROPHILS # (AUTO) 5.1 (2.1-6.9); NEUTROPHILS % 82.9 % (38.7-80.0); PLATELET COUNT 188 x10e3/uL (140-360); RED BLOOD COUNT 3.78 x10e6/uL (4.3-5.7); WHITE BLOOD COUNT 6.18 x10e3/uL (4.8-10.8)
[2024-06-01 06:08] LABS: ANION GAP 11.1 mmol/L (8-16); CALCIUM 8.4 mg/dL (8.4-10.2); CREATININE, SERUM 1.96 mg/dL (0.72-1.25); POTASSIUM 4.1 mmol/L (3.5-5.1)
[2024-06-02] VITALS (12 sets, daily range): BP systolic 151–163; BP diastolic 75–88; PULSE 75–92; RESP 17–21; TEMP 97.7–98.1; O2SAT 97–100
[2024-06-02 07:54] LABS: ALPHA FETO-PROTEIN 1.8 ng/mL (0.0-6.4)
[2024-06-02] MEDS: METHYLPREDNISOLONE SOD SUCC 40 MG/ML VIAL 1ML IV SCH (09:22)
[2024-06-02] MEDS: AMLODIPINE BESYLATE 5 MG TAB PO PRN (09:30)
[2024-06-02] MEDS ORDERED: MAGNESIUM HYDROXIDE 30 ML UDC PO PRN (11:15)
[2024-06-02] MEDS ORDERED: BISACODYL 10 MG SUPP PR PRN (11:15)
[2024-06-02] MEDS: POLYETHYLENE GLYCOL 3350 17 GM PACK PO SCH (12:34)
[2024-06-02] MEDS: SENNA-S TABLET PO SCH (12:35)
[2024-06-02] MEDS: BISACODYL 10 MG SUPP PR ONE (12:35)
[2024-06-02] MEDS: MAGNESIUM HYDROXIDE 30 ML UDC PO ONE (12:35)
[2024-06-03] VITALS (13 sets, daily range): BP systolic 145–162; BP diastolic 82–89; PULSE 74–88; RESP 17–20; TEMP 97.7–98.9; O2SAT 96–100
[2024-06-03 05:46] LABS: EOSINOPHILS # (AUTO) 0.2 (0.0-0.4); HEMATOCRIT 32.5 % (38.2-49.6); HEMOGLOBIN 10.4 g/dL (14.0-18.0); LYMPHOCYTES # (AUTO) 0.9 (1.0-3.2); LYMPHOCYTES % 17.9 % (18.0-39.1); MEAN CORPUSCULAR HEMOGLOBIN 28.5 pg (28-32); MONOCYTES # (AUTO) 0.5 (0.2-0.8); MONOCYTES % 10.5 % (4.4-11.3); NEUTROPHILS # (AUTO) 3.4 (2.1-6.9); NEUTROPHILS % 67.8 % (38.7-80.0); PLATELET COUNT 151 x10e3/uL (140-360); RED BLOOD COUNT 3.65 x10e6/uL (4.3-5.7); RED CELL DISTRIBUTION WIDTH 14.8 % (11.7-14.4); WHITE BLOOD COUNT 4.97 x10e3/uL (4.8-10.8)
[2024-06-03 06:05] LABS: ANION GAP 10.2 mmol/L (8-16); CALCIUM 7.9 mg/dL (8.4-10.2); CREATININE, SERUM 1.49 mg/dL (0.72-1.25); POTASSIUM 4.2 mmol/L (3.5-5.1)
[2024-06-03] MEDS: AMLODIPINE BESYLATE 5 MG TAB PO SCH (11:43)
[2024-06-04] VITALS (14 sets, daily range): BP systolic 159–177; BP diastolic 81–92; PULSE 7–88; RESP 7–22; TEMP 97.6–99.3; O2SAT 95–100
[2024-06-05] VITALS (7 sets, daily range): BP systolic 168–171; BP diastolic 80–95; PULSE 70–84; RESP 18–20; TEMP 97.3–98.4; O2SAT 96–100
[2024-06-05 06:00] LABS: BASOPHILS % 0.2 % (0.0-1.0); EOSINOPHILS # (AUTO) 0.2 (0.0-0.4); EOSINOPHILS % 3.8 % (0.0-6.0); HEMATOCRIT 34.9 % (38.2-49.6); HEMOGLOBIN 11.5 g/dL (14.0-18.0); LYMPHOCYTES # (AUTO) 1.2 (1.0-3.2); LYMPHOCYTES % 19.5 % (18.0-39.1); MEAN CORPUSCULAR HEMOGLOBIN 28.5 pg (28-32); MEAN CORPUSCULAR VOLUME 86.4 fL (81-99); MONOCYTES # (AUTO) 0.5 (0.2-0.8); MONOCYTES % 8.4 % (4.4-11.3); NEUTROPHILS # (AUTO) 4.1 (2.1-6.9); NEUTROPHILS % 67.1 % (38.7-80.0); PLATELET COUNT 148 x10e3/uL (140-360); RED BLOOD COUNT 4.04 x10e6/uL (4.3-5.7); RED CELL DISTRIBUTION WIDTH 14.8 % (11.7-14.4); WHITE BLOOD COUNT 6.06 x10e3/uL (4.8-10.8)
[2024-06-05 06:17] LABS: ANION GAP 13.5 mmol/L (8-16); CALCIUM 8.7 mg/dL (8.4-10.2); CREATININE, SERUM 1.48 mg/dL (0.72-1.25); POTASSIUM 4.5 mmol/L (3.5-5.1)
== END 2024-06-05 13:05 | disposition other institution (70) | DRG 180 ==
LOC: ER 09:38 → ERHOLD 12:38 → MED/SURG2 14:10
PROVIDERS: ADMIT Internal Medicine; ATTEND Internal Medicine
DX: C34.11 Malignant neoplasm of upper lobe, right bronchus or lung (principal); I21.A1 Myocardial infarction type 2; J18.8 Other pneumonia, unspecified organism; J96.01 Acute respiratory failure with hypoxia; C77.1 Secondary and unspecified malignant neoplasm of intrathoracic lymph nodes; J44.0 Chronic obstructive pulmonary disease with (acute) lower respiratory infection; N17.9 Acute kidney failure, unspecified; J44.1 Chronic obstructive pulmonary disease with (acute) exacerbation; E86.0 Dehydration; J43.9 Emphysema, unspecified; Z11.52 Encounter for screening for COVID-19; I25.10 Atherosclerotic heart disease of native coronary artery without angina pectoris; E78.5 Hyperlipidemia, unspecified; I10 Essential (primary) hypertension; E03.9 Hypothyroidism, unspecified; K80.20 Calculus of gallbladder without cholecystitis without obstruction; N40.1 Benign prostatic hyperplasia with lower urinary tract symptoms; R33.8 Other retention of urine; I71.20 Thoracic aortic aneurysm, without rupture, unspecified; I71.43 Infrarenal abdominal aortic aneurysm, without rupture; R59.9 Enlarged lymph nodes, unspecified; D64.9 Anemia, unspecified; R53.81 Other malaise; M15.9 Polyosteoarthritis, unspecified; R00.0 Tachycardia, unspecified; H35.30 Unspecified macular degeneration; M10.9 Gout, unspecified; G62.9 Polyneuropathy, unspecified; I73.9 Peripheral vascular disease, unspecified; I77.1 Stricture of artery; M48.00 Spinal stenosis, site unspecified; K57.90 Diverticulosis of intestine, part unspecified, without perforation or abscess without bleeding; R25.1 Tremor, unspecified; E66.9 Obesity, unspecified; Z68.37 Body mass index [BMI] 37.0-37.9, adult; Z79.82 Long term (current) use of aspirin; Z79.51 Long term (current) use of inhaled steroids; Z79.890 Hormone replacement therapy; Z95.1 Presence of aortocoronary bypass graft; Z85.118 Personal history of other malignant neoplasm of bronchus and lung; Z92.3 Personal history of irradiation; Z92.21 Personal history of antineoplastic chemotherapy; Z90.2 Acquired absence of lung [part of]; Z85.038 Personal history of other malignant neoplasm of large intestine; Z90.49 Acquired absence of other specified parts of digestive tract; Z91.041 Radiographic dye allergy status; Z88.6 Allergy status to analgesic agent; Z88.0 Allergy status to penicillin; Z87.891 Personal history of nicotine dependence; Z80.1 Family history of malignant neoplasm of trachea, bronchus and lung; Z82.49 Family history of ischemic heart disease and other diseases of the circulatory system
CPT/HCPCS: 36415; 71045; 71250; 74176; 80048; 80053; 80061; 81001; 82105; 82378; 82550; 82948; 83036; 83605; 83735; 84100; 84152; 84443; 84484; 85025; 85610; 85730; 86301; 87040; 87086; 87400; 93005; 94640; 94760; 94799; 99284; J0360; J0692; J1644; J2919; J7030; J7040; J7050; U0002

== ENCOUNTER 2024-07-28 10:09 | Emergency (ER) | payer MEDICARE ==
[~2024-07-28] VITALS: Ht 180.3 cm; Wt 74.8 kg
[~2024-07-28 10:09] MED LIST changes: +ALLOPURINOL100 MG PO; +CLOPIDOGREL75 MG PO
[2024-07-28 10:30] VITALS: TEMP 97.5
[2024-07-28 12:00] VITALS: PULSE 63; RESP 18
[2024-07-28 13:16] VITALS: BP 142/95; PULSE 60; RESP 18; O2SAT 99
== END 2024-07-28 14:05 | disposition home or self-care (01) ==
LOC: ER 10:17
DX: Z46.6 Encounter for fitting and adjustment of urinary device (principal); I10 Essential (primary) hypertension; J44.9 Chronic obstructive pulmonary disease, unspecified; E03.9 Hypothyroidism, unspecified; Z85.038 Personal history of other malignant neoplasm of large intestine; Z95.1 Presence of aortocoronary bypass graft
CPT/HCPCS: 51700; 87086; 87186; 99283